=== PATIENT | female | born 1955 | race African-American/Black ===

== ENCOUNTER 2024-10-12 18:54 | Inpatient (IN) | payer MEDICARE, MEDICAID ==
[~2024-10-12] VITALS: Ht 157.5 cm; Wt 71.5 kg
[~2024-10-12 18:54] MED LIST: ATOR-47 PO; ATOR40TA52 PO; BUPR-60 PO; BUSP10TA90 PO; CALC-332 PO; CALC-450 PO; CARV-216 PO; CLOP75TA70 PO; FERR325T77 PO; FUROPOW8 PO; GABAPENTIN PO; GEMF-66 PO; INDO50CA82 PO; LORSARTAN PO; MAGN400T7 PO; METF-372 PO; METH-1181 PO; RANI150I PO; RANO10003 PO; SEMA4INJ SC; TAMS0.4C39 PO; [UNRECOGNIZED DRUG - CODE] PO
--- NOTE | 2024-10-12 19:03 | ED.PDOC ---
HPI Comments 69-year-old female who came to ER via EMS for chest pains. Patient notes an extensive cardiac history, including hypertension, diabetes, coronary artery disease, chronic kidney disease, COPD, mi, status post pacemaker and cardiac stents. States at about 8:00 a.m. today, she started having the sided chest pains, constant, pressure, tight, unprovoked, non radiating, associated with shortness of breath. Patient was given aspirin and NTG by paramedics. 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 Allergies: Coded Allergies: NO KNOWN ALLERGIES (Unverified , 12/28/12) Home Meds Reported Medications Methocarbamol (Methocarbamol) 500 Mg Tab, 500 MG PO 12/30/12 Calcium Carbonate-Cholecalcife (OYSTER SHELL CALCIUM + D3) 1 Tab Tab, 1 TAB PO 12/30/12 Indomethacin (Indomethacin) 50 Mg Cap, 50 MG PO 12/30/12 [Furosemide] (Furosemide) No Conflict Check, PO 12/30/12 Bupropion Hcl (Bupropion Hcl Sr) 150 Mg Tab, 150 MG PO 12/30/12 Buspirone Hcl (Buspirone Hcl) 10 Mg Tab, 10 MG PO 12/30/12 Aspirin (EC-81 ASPIRIN) 81 Mg Tab, 81 MG PO 12/30/12 Carvedilol (COREG) 12.5 Mg Tab, 12.5 MG PO 12/30/12 Clopidogrel Bisulfate (CLOPIDOGREL) 75 Mg Tab, 75 MG PO 12/30/12 Magnesium Oxide (MAGNESIUM OXIDE) 400 Mg Tab, 400 MG PO 12/30/12 Calcium Carbonate-Vitamin D (CALCIUM 500+D) 500 + Tab, 500 + PO 12/30/12 [Lorsartan] No Conflict Check, 25 MG PO 12/30/12 Atorvastatin Calcium (ATORVASTATIN CALCIUM) 80 Mg Tab, 80 MG PO 12/30/12 [Gabepenttin] No Conflict Check, 300 PO 12/30/12 Gemfibrozil (Gemfibrozil) 600 Mg Tab, 600 MG PO 12/30/12 Ranitidine Hcl (RANITIDINE HCL) 150 Mg/6 Ml Inj, 150 MG PO 12/30/12 Ferrous Gluconate (FERROUS GLUCONATE) 325 Mg Tab, 325 MG PO 12/30/12 Metformin Hydrochloride (Metformin Hcl) 1,000 Mg Tab, 1000 MG PO 12/30/12 Information Source: Patient, Emergency Med Personnel Mode of Arrival: EMS Severity: Moderate Timing: Hours Duration: Since onset Prehospital treatment: 12 Lead EKG, ASA, NTG, Oxygen Location: Chest (L) Radiation: No Radiation Quality: Pressure, Tightness Onset: With Light Exertion Cardiac Risk Factors: HTN, Diabetes PE Risk Factors: None History of: Similar pain in past, NH Associated Signs and Symptoms: SOB Past Medical History PAST MEDICAL HISTORY: CAD, CKF, COPD, DM, High Lipids, HTN, [place] Surgical History: BTL, , Hernia Repair, Pacemaker, PTCA SHOP SUPERINTENDENT History: No Pertinent SHOP SUPERINTENDENT History Family History Family History: No family hx of DM, No family hx of Heart estephania, No family hx of HTN Social History Smoker: Non-Smoker Alcohol: Denies ETOH Use Drugs: Denies Drug Use Lives In: Home Constitutional: denies: chills, diaphoresis, fatigue, fever, malaise, sweats, weakness, others EENTM: denies: blurred vision, double vision, ear bleeding, ear discharge, ear drainage, ear pain, ear ringing, eye pain, eye redness, hearing loss, mouth pain, mouth swelling, nasal discharge, nose bleeding, nose congestion, nose pain, photophobia, tearing, throat pain, throat swelling, voice changes, others Respiratory: reports: SOB at rest, shortness of breath; denies: cough, hemoptysis, orthopnea, SOB with excertion, stridor, wheezing, others Cardiovascular: reports: chest pain; denies: dizzy spells, diaphoresis, Dyspnea on exertion, edema, irregular heart beat, left arm pain, lightheadedness, palpitations, PND, syncope, others Gastrointestinal: denies: abdomen distended, abdominal pain, blood streaked bowels, constipated, diarrhea, dysphagia, difficulty swallowing, hematemesis, melena, nausea, poor appetite, poor fluid intake, rectal bleeding, rectal pain, vomiting, others Genitourinary: denies: abnormal vagina bleeding, burning, dyspareunia, dysuria, flank pain, frequency, hematuria, incontinence, pain, , vagina discharge, urgency, others Neurological: denies: dizziness, fainting, headache, left sided numbness, left sided weakness, numbness, paresthesia, pre-existing deficit, right sided numbness, right sided weakness, seizure, speech problems, tingling, tremors, weakness, others Musculoskeletal: denies: back pain, gout, joint pain, joint swelling, muscle pain, muscle stiffness, neck pain, others Integumetry: denies: bruises, change in color, change in hair/nails, dryness, laceration, lesions, lumps, rash, wounds, others Allergic/Immunocompromised: denies: Difficulty Healing, Frequent Infections, Hives, Itching, others Hematologic/Lymphatic: denies: anemia, blood clots, easy bleeding, easy bruising, swollen glands, others Endocrine: denies: excessive hunger, excessive sweating, excessive thirst, excessive urination, flushing, intolerance to cold, intolerance to heat, unexplained weight gain, unexplained weight loss, others Psychiatric: denies: anxiety, bipolar disorder, depression, hopeless, panic disorder, schizophrenia, sleepless, suicidal, others Physical Exam General Appearance: No Apparent Distress, Normal HEENT: Normal ENT Inspection, Pharynx Normal, TMs Normal Neck: Full Range of Motion, Non-Tender, Normal, Normal Inspection Respiratory: Chest Non-Tender, Lungs Clear, No Accessory Muscle Use, No Respiratory Distress, Normal Breath Sounds Cardiovascular: No Edema, No JVD, No Murmur, No Gallop, Normal Peripheral Pulses, Regular Rate/Rhythm Breast Exam: Deferred Gastrointestinal: No Organomegaly, Non Tender, No Pulsatile Mass, Normal Bowel Sounds, Soft Genitalia: Deferred Pelvic: Deferred Rectal: Deferred Extremities: No calf tenderness, Normal capillary refill, Normal inspection, Normal range of motion, Non-tender, No pedal edema Musculoskeletal : Apperance: Normal 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 Was a procedure done?: No CP Differential Dx Differential Diagnosis: Angina, Anxiety / Panic Attack, Electrolyte Disorder, Hyperventilation Differential Diagnosis: Angina, Chest Wall Pain, Costochondritis, Esophageal reflux/spasm, Gastritis, Myocardial Infarction X-Ray, Labs, Meds, VS Vital Signs Date Time Temp Pulse Resp B/P (MAP) Pulse Ox O2 Delivery O2 Flow Rate FiO2 6/13/25 19:59 94 20 157/72 10/12/24 19:58 157/72 10/12/24 19:35 98 Room Air* 0 21 10/12/24 19:30 90 16 99 Room Air* 0 21 10/12/24 19:14 98.7 90 16 157/72 (100) 99 98.7 10/12/24 19:00 97.8 98 18 142/95 (111) 97 97.8 10/12/24 18:59 98 Lab Test 10/12/24 19:19 Range/Units White Blood Count 4.9 4.4-10.8 10^3/uL Red Blood Count 4.72 4.0-5.20 10^6/uL Hemoglobin 13.6 12.2-16.2 g/dL Hematocrit 41.0 36.0-46.0 % Mean Corpuscular Volume 87.0 80.0-100.0 fL Mean Corpuscular Hemoglobin 28.9 28.0-32.0 pg Mean Corpuscular Hemoglobin Concent 33.2 32.0-36.0 g/dL Red Cell Distribution Width 13.7 11.8-14.3 % Platelet Count 161 140-450 10^3/uL Mean Platelet Volume 9.0 6.9-10.8 fL Neutrophils (%) (Auto) 58.1 37.0-80.0 % Lymphocytes (%) (Auto) 29.0 10.0-50.0 % Monocytes (%) (Auto) 8.9 0.0-12.0 % Eosinophils (%) (Auto) 2.8 0.0-7.0 % Basophils (%) (Auto) 1.2 0.0-2.0 % Neutrophils # (Auto) 2.8 1.6-8.6 10 ^3/uL Lymphocytes # (Auto) 1.4 0.4-5.4 10 ^3/uL Monocytes # (Auto) 0.4 0-1.3 10 ^3/uL Eosinophils # (Auto) 0.1 0-0.8 10 ^3/uL Basophils # (Auto) 0.1 0-0.2 10 ^3/uL Nucleated Red Blood Cells 0.1 % Prothrombin Time 11.2 9.3-11.8 sec Prothrombin Time INR 1.06 0.9-1.15 Activated Partial Thromboplast Time 27.7 24.5-34.5 SEC Sodium Level 140 136-145 mmol/L Potassium Level 4.1 3.5-5.1 mmol/L Chloride Level 106 98-107 mmol/L Carbon Dioxide Level 26 20-31 mmol/L Anion Gap 8 5-15 Blood Urea Nitrogen 15 9-23 mg/dL Creatinine 1.23 H 0.550-1.02 mg/dL Glomerular Filtration Rate Calc 48 >90 mL/min BUN/Creatinine Ratio 12.2 10.0-20.0 Serum Glucose 154 H 74-106 mg/dL Calcium Level 11.0 H 8.7-10.4 mg/dL Total Bilirubin 0.4 0.2-1.0 mg/dL Aspartate Amino Transferase (AST) 20 <34 U/L Alanine Aminotransferase (ALT) 21 7-40 U/L Alkaline Phosphatase 139 H 46-116 U/L Troponin I High Sensitivity 28 </=34 ng/L Total Protein 7.3 5.7-8.2 g/dL Albumin 4.6 3.2-4.8 g/dL Current Medications Medications (Trade) Dose Ordered Sig/Darline Route Start Time Stop Time Status Last Admin Morphine Sulfate 4 mg ONCE ONCE IV 10/12/24 19:00 10/12/24 19:01 DC 10/12/24 19:59 Aspirin 162 mg ONCE ONCE PO 10/12/24 19:00 10/12/24 19:01 DC 10/12/24 19:57 Ondansetron HCl (Zofran) 4 mg ONCE ONCE IV 10/12/24 19:00 10/12/24 19:01 DC 10/12/24 19:57 Nitroglycerin (Ntrostat Sublingual) 0.4 mg ONCE ONCE SL 10/12/24 19:00 10/12/24 19:01 DC 10/12/24 19:58 CHEST RADIOGRAPH Indication: chest pain Technique: Single frontal view of the chest was obtained Comparison: None FINDINGS: Lines and Tubes: None left-sided approach dual lead AICD terminating within right atrium and right ventricle. Lungs: No focal consolidation. Interstitial prominence. Indistinctness of the left hemidiaphragm. No pneumothorax. Cardiomediastinal contours: Unremarkable Bones: No acute osseous abnormality. IMPRESSION: Indistinctness of the left hemidiaphragm which may be overlying structures with trace effusion/atelectasis not excluded. Time of 1ST Reevaluation: 18:58 Reevaluation 1ST: Unchanged Patient Education/Counseling: Diagnosis, Treatment Family Education/Counseling: No Family Present Departure 1 Departure Time of Disposition: 20:15 Impression: Primary Impression: Acute coronary syndrome Additional Impression: Acute renal injury Disposition: 09 ADMITTED INPATIENT Admit to: [facility] Condition: Guarded Discharged With: Self Comments Left-Sided Chest Pain in 69-Year-Old Female with CAD Chief Complaint: Left-sided chest pain History of Present Illness: Patient is a 69-year-old female with significant cardiac history who presents to the ED with left parasternal chest pain. The pain is described as pressure-like and was partially relieved with nitroglycerin administration. The patient has a complex medical history including coronary artery disease with two cardiac stents placed approximately 15 years ago, COPD, hypertension, type 2 diabetes, and has a pacemaker. Given her cardiac risk factors and presentation, there is high concern for acute coronary syndrome. Review of Systems: Limited review of systems due to acute presentation. Cardiovascular: Positive for left-sided chest pain, pressure-like in nature. Respiratory: No information about shortness of breath, cough, or other res piratory symptoms noted. Constitutional: No information about fever, chills, or other constitutional symptoms noted. Remainder of systems deferred due to acute presentation. 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 Past Medical History: Coronary artery disease with cardiac stents placed approximately 15 years ago Chronic obstructive pulmonary disease (COPD) Hypertension Type 2 diabetes mellitus Status post pacemaker placement Past Surgical History: Cardiac stent placement approximately 15 years ago Pacemaker implantation (date not specified) Lab Results: CBC: Unremarkable Chemistry panel: - Creatinine: Elevated at 1.23 mg/dL - Glucose: Slightly elevated at 154 mg/dL Cardiac enzymes: - Initial troponin: Normal at 28 ng/L Imaging and Other Relevant Results: Chest X-ray: Possible small left lower lobe atelectasis versus small pleural effusion Medical Decision Making: Summary Statement: 69-year-old female with significant cardiac history presenting with left-sided chest pain that is pressure-like and partially responsive to nitroglycerin, concerning for acute coronary syndrome. Problem List: 1. Acute chest pain, likely acute coronary syndrome 2. Acute kidney injury with elevated creatinine 3. Coronary artery disease with prior stents 4. COPD 5. Hypertension 6. Type 2 diabetes mellitus 7. Status post pacemaker placement Differential Diagnosis: Acute coronary syndrome (unstable angina vs. NSTEMI), stable angina, COPD exacerbation, pulmonary embolism, aortic dissection, musculoskeletal chest pain, pericarditis, pneumonia, pleural effusion ED Course: Patient presented with left-sided chest pain. Given aspirin, nitroglycerin, and morphine with improvement in chest pain. Initial troponin was normal. Chest X-ray showed possible left lower lobe atelectasis versus small pleural effusion. Given elevated creatinine, patient received 500 mL IV fluid bolus. Decision made to admit for acute coronary syndrome workup and management of acute kidney injury. Assessment and Plan: 1. Acute Chest Pain/Suspected Acute Coronary Syndrome: - Admit to telemetry unit for further evaluation and management - Continue aspirin therapy - PRN nitroglycerin for chest pain - Serial cardiac enzymes - Cardiology consultation - Consider cardiac catheterization based on further evaluation 2. Acute Kidney Injury: - IV hydration with careful monitoring of fluid status given cardiac history - Monitor renal function with serial creatinine measurements - Avoid nephrotoxic medications - Consider nephrology consultation if no improvement 3. Chronic Medical Conditions (COPD, HTN, DM, CAD): - Continue home medications as appropriate - Monitor blood glucose levels - Optimize blood pressure control 4. Possible Left Lower Lobe Atelectasis/Small Pleural Effusion: - Monitor respiratory status - Consider repeat imaging if respiratory symptoms develop Patient has been informed of the assessment and plan. She understands the need f or admission and agrees with the treatment plan. She will be transferred to the telemetry unit for continued care. Additional Notes: Patient admitted for acute coronary syndrome and acute kidney injury Billing Information: ICD-10: I20.9 - Angina pectoris, unspecified ICD-10: N17.9 - Acute kidney failure, unspecified ICD-10: I25.10 - Atherosclerotic heart disease of campo coronary artery without angina pectoris ICD-10: J44.9 - Chronic obstructive pulmonary disease, unspecified ICD-10: I10 - Essential (primary) hypertension ICD-10: E11.9 - Type 2 diabetes mellitus without complications Critical Care Note Critical Care Time?: Yes (35 min-critical care time only) Critical care comment: Acute chest pains Total critical care time: Approximately 36 minutes Due to a high probability of clinically significant, life threatening deterior ation, the patient required my highest level of preparedness to intervene emergently and I personally spent this critical care time directly and personally managing the patient. This critical care time included obtaining a history; examining the patient; pulse oximetry; ordering and review of studies; arranging urgent treatment with development of a management plan; evaluation of patient's response to treatment; frequent reassessment; and, discussions with other providers. This critical care time was performed to assess and manage the high probability of imminent, life-threatening deterioration that could result in multi-organ failure. It was exclusive of separately billable procedures and treating other patients. Stability Stability form required: No Heart Score Heart Score: Heart Score Response (Comments) Value History Moderate Suspicious 1 EKG Repolarization Disturb 1 Age >65 2 Risk Factors >3 or Hx ASHD 2 Troponin Normal limit 0 Total 6 I personally scribed for KLARISSA VENEGAS MD ([email or web address]) on 10/12/24 at 19:03. Electronically submitted by Merritt Ferrer ([email or web address]). I personally scribed for KLARISSA VENEGAS MD ([email or web address]) on 10/12/24 at 20:04. Elena ctronically submitted by Merritt Ferrer ([email or web address]). KLARISSA VENEGAS MD Oct 12, 2024 19:03
[2024-10-12 19:30] VITALS: PULSE 90; RESP 16; O2SAT 99
[2024-10-12 19:35] LABS: Basophils # (auto) 0.1 10 ^3/uL (0-0.2); Basophils % (auto) 1.2 % (0.0-2.0); Eosinophils # (auto) 0.1 10 ^3/uL (0-0.8); Eosinophils % (auto) 2.8 % (0.0-7.0); Hemoglobin 13.6 g/dL (12.2-16.2); Lymphocytes # (auto) 1.4 10 ^3/uL (0.4-5.4); Mean Corpuscular Hemoglobin 28.9 pg (28.0-32.0); Mean Corpuscular Hgb Conc. 33.2 g/dL (32.0-36.0); Monocytes # (auto) 0.4 10 ^3/uL (0-1.3); Monocytes % (auto) 8.9 % (0.0-12.0); Neutrophils # (auto) 2.8 10 ^3/uL (1.6-8.6); Neutrophils % (auto) 58.1 % (37.0-80.0); Nucleated Red Blood Cells % 0.1 %; Platelet Count (auto) 161 10^3/uL (140-450); Red Blood Cells 4.72 10^6/uL (4.0-5.20); Red Cell Distribution Width 13.7 % (11.8-14.3); White Blood Cell 4.9 10^3/uL (4.4-10.8)
[2024-10-12 19:51] LABS: Alanine Aminotransferase 21 U/L (7-40); Albumin 4.6 g/dL (3.2-4.8); Anion Gap 8 (5-15); Aspartate Aminotransferase 20 U/L (<34); BUN/Creatinine Ratio 12.2 (10.0-20.0); Bilirubin, Total 0.4 mg/dL (0.2-1.0); Blood Urea Nitrogen 15 mg/dL (9-23); Carbon Dioxide 26 mmol/L (20-31); Chloride 106 mmol/L (98-107); Potassium 4.1 mmol/L (3.5-5.1); Sodium 140 mmol/L (136-145); Total Protein 7.3 g/dL (5.7-8.2)
[2024-10-12 19:54] LABS: Alkaline Phosphatase 139 U/L (46-116); Glucose 154 mg/dL (74-106)
[2024-10-12 19:55] LABS: INR 1.06 (0.9-1.15); Partial Thromboplastin Time 27.7 SEC (24.5-34.5); Prothrombin Time 11.2 sec (9.3-11.8)
[2024-10-12] MEDS: ONDANSETRON HCL 4 MG/2 ML VIAL IV ONE (19:57)
[2024-10-12] MEDS: ASPirin 81 mg TAB PO ONE (19:57)
[2024-10-12] MEDS: NITROGLYCERIN 0.4 MG SL TAB SL ONE (19:58)
--- NOTE | 2024-10-12 19:58 | DVH ---
CHEST RADIOGRAPH Indication: chest pain Technique: Single frontal view of the chest was obtained Comparison: None FINDINGS: Lines and Tubes: None left-sided approach dual lead AICD terminating within right atrium and right ve ntricle. Lungs: No focal consolidation. Interstitial prominence. Indistinctness of the left hemidiaphragm. No pneumothorax. Cardiomediastinal contours: Unremarkable Bones: No acute osseous abnormality. IMPRESSION: Indistinctness of the left hemidiaphragm which may be overlying structures with trace effusion/atelec tasis not excluded.
[2024-10-12] MEDS: MORPHINE SULFATE 4 MG/ML SYR/VIAL IV ONE (19:59)
--- NOTE | 2024-10-12 20:14 | ECG ---
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
[2024-10-12] MEDS ORDERED: hydrALAZINE HCL 20 MG/ML VL IV PRN (20:30)
[2024-10-12] MEDS ORDERED: ONDANSETRON HCL 4 MG/2 ML VIAL IV PRN (20:30)
[2024-10-12] MEDS ORDERED: DOCUSATE SOD 100 MG CAP PO PRN (20:30)
[2024-10-12] MEDS ORDERED: DEXTROSE (50%) 50ML SYRG IV PRN (20:30)
[2024-10-12] MEDS ORDERED: ACETAMINOPHEN 325 MG TAB PO PRN (20:30)
[2024-10-12] MEDS: SODIUM CHLORIDE 0.9% 1,000 ML IVB ONE (20:41)
[2024-10-12 21:20] VITALS: PULSE 90; RESP 13; O2SAT 98
--- NOTE | 2024-10-12 22:08 | DVHHP2 ---
History of Present Illness Reason for Visit: Acute coronary syndrome History of Present Illness The patient is a 69-year-old female with multiple past medical history including Coronary artery disease, diabetes mellitus, COPD, [place], and hypertension who presented to [facility] ED with complaint of chest pain. Patient reports she has been experiencing left-sided chest pain, constant in nature, pressure-like sensation, tightness, nonradiating, associated with shortness of breaths, getting worse that prompted this visit. Patient was seen and evaluated in the ED, laboratory data shows WBC 4.9, platelets 161, sodium 140, potassium 4.1, BUN 15, creatinine 1.23, glucose 154, calcium 11.0, troponin 28, blood pressure 157/72, heart rate 92, temperature 98.7 F, O2 saturation 99% on room air. Chest x-ray revealing indistinctness of the left hemidiaphragm which may be overlying structures with trace effusion/atelectasis not excluded. Patient was given aspirin 162 mg p.o. x1, please see medication orders section in the computer. On my assessment, patient denied chest pain at this moment, no headache, no dizziness, currently on oxygen, no diaphoresis, no nausea, no vomiting, no fever, no chills. Patient was admitted for further evaluation and medical management. Past Medical History CAD, CKF, COPD, DM, High Lipids, HTN, [place] Past Surgical History BTL, , Hernia Repair, Pacemaker, PTCA Family History Reviewed, noncontributory to the management of this case. Past Social History The patient lives at home, denies smoking, alcohol or illicit drugs abuse. Review of Systems Constitutional: No: Fever, Chills, Sweats, Weakness, Malaise, Other Eyes: No: Pain, Vision change, Conjunctivae inflammation, Eyelid inflammation, Other, Redness ENT: No: Ear pain, Ear discharge, Nose pain, Nose discharge, Nose congestion, Mouth pain, Mouth swelling, Throat pain, Throat swelling, Other Respiratory: Shortness of breath, Other (SOB at rest); No: Cough, Dry, SOB with excertion, Wheezing, Hemoptysis, Pleuritic Pain, Sputum, Wheezing Cardiovascular: Chest Pain; No: Palpitations, Orthopnea, Paroxysmal Noc. Dyspne a, Edema, Lt Headedness, Other Gastrointestinal: No: Nausea, Vomiting, Abdominal Pain, Diarrhea, Constipation, Melena, Hematochezia, Other Genitourinary: No Dysuria, No Frequency, No Incontinence, No Hematuria, No Retention, No Other Musculoskeletal: No: other, neck pain, shoulder pain, arm pain, back pain, hand pain, leg pain, foot pain Skin: No: Rash, Lesions, Jaundice, Bruising, Other Neurological: No: Weakness, Numbness, Incoordination, Change in speech, Confusion, Seizures, Other Allergies: Coded Allergies: NO KNOWN ALLERGIES (Unverified , 12/28/12) Medications Current Medications Medications Dose Ordered Sig/Darline Route Start Time Stop Time Status Last Admin Dose Admin Aspirin 81 mg DAILY PO 10/13/24 10:00 Atorvastatin Calcium 40 mg HS PO 10/12/24 22:00 Carvedilol 12.5 mg Q12HR PO 10/12/24 22:00 Hydralazine HCl 10 mg Q6HP PRN IV 10/12/24 20:30 Diagnostic Test (Pha) 1 strip ACHS 10/12/24 22:00 Insulin Human Regular ACHS SC 10/12/24 22:00 Dextrose 50 ml UD PRN IV 10/12/24 20:30 Sodium Chloride 10 ml Q8HR IV 10/12/24 22:00 Acetaminophen/ Hydrocodone Bitart 1 tab Q4HP PRN PO 10/12/24 20:30 Ondansetron HCl 4 mg Q4HP PRN IV 10/12/24 20:30 Docusate Sodium 100 mg BIDPRN PRN PO 10/12/24 20:30 Acetaminophen 650 mg Q6HP PRN PO 10/12/24 20:30 Exam Vital Signs Vital Signs Date Time Temp Pulse Resp B/P (MAP) Pulse Ox O2 Delivery O2 Flow Rate FiO2 10/12/24 20:53 133/73 10/12/24 20:29 96 16 10/12/24 20:00 99 10/12/24 19:35 Room Air* 0 21 10/12/24 19:14 98.7 98.7 General Appearance: Alert, Oriented X3, Cooperative, No acute distress HEENT: Atraumatic, PERRLA, EOMI, Mucous membr. moist/pink Respiratory: Normal air movement Cardiovascular: Regular rate, Normal S1, Normal S2, No murmurs Abdominal: Normal bowel sounds, Soft, No tenderness, No hepatospenomegaly, No masses Extremities: No clubbing, No cyanosis, No edema, Normal pulses, No tenderness/swelling Skin: No rashes, No breakdown, No significant lesion Neuro: Normal speech, Normal tone, Sensation intact, Cranial nerves 3-12 NL, Reflexes 2+, Other (Generalized weakness) Psych/Mental Status: Mental status NL, Mood NL Labs/Xrays Labs Test 10/12/24 20:27 10/12/24 19:19 Range/Units Troponin I High Sensitivity 33 </=34 ng/L White Blood Count 4.9 4.4-10.8 10^3/uL Red Blood Count 4.72 4.0-5.20 10^6/uL Hemoglobin 13.6 12.2-16.2 g/dL Hematocrit 41.0 36.0-46.0 % Mean Corpuscular Volume 87.0 80.0-100.0 fL Mean Corpuscular Hemoglobin 28.9 28.0-32.0 pg Mean Corpuscular Hemoglobin Concent 33.2 32.0-36.0 g/dL Red Cell Distribution Width 13.7 11.8-14.3 % Platelet Count 161 140-450 10^3/uL Mean Platelet Volume 9.0 6.9-10.8 fL Neutrophils (%) (Auto) 58.1 37.0-80.0 % Lymphocytes (%) (Auto) 29.0 10.0-50.0 % Monocytes (%) (Auto) 8.9 0.0-12.0 % Eosinophils (%) (Auto) 2.8 0.0-7.0 % Basophils (%) (Auto) 1.2 0.0-2.0 % Neutrophils # (Auto) 2.8 1.6-8.6 10 ^3/uL Lymphocytes # (Auto) 1.4 0.4-5.4 10 ^3/uL Monocytes # (Auto) 0.4 0-1.3 10 ^3/uL Eosinophils # (Auto) 0.1 0-0.8 10 ^3/uL Basophils # (Auto) 0.1 0-0.2 10 ^3/uL Nucleated Red Blood Cells 0.1 % Prothrombin Time 11.2 9.3-11.8 sec Prothrombin Time INR 1.06 0.9-1.15 Activated Partial Thromboplast Time 27.7 24.5-34.5 SEC Sodium Level 140 136-145 mmol/L Potassium Level 4.1 3.5-5.1 mmol/L Chloride Level 106 98-107 mmol/L Carbon Dioxide Level 26 20-31 mmol/L Anion Gap 8 5-15 Blood Urea Nitrogen 15 9-23 mg/dL Creatinine 1.23 H 0.550-1.02 mg/dL Glomerular Filtration Rate Calc 48 >90 mL/min BUN/Creatinine Ratio 12.2 10.0-20.0 Serum Glucose 154 H 74-106 mg/dL Calcium Level 11.0 H 8.7-10.4 mg/dL Total Bilirubin 0.4 0.2-1.0 mg/dL Aspartate Amino Transferase (AST) 20 <34 U/L Alanine Aminotransferase (ALT) 21 7-40 U/L Alkaline Phosphatase 139 H 46-116 U/L Total Protein 7.3 5.7-8.2 g/dL Albumin 4.6 3.2-4.8 g/dL PATIENT: ANUPAMA BARNES ACCT: [id number] UNIT: [id number] : 1955 LOC: ER ROOM / BED: / AGE / SEX: 69 / F ADM STATUS: REG ER SERVICE 408 ORDERING PHYSICIAN: KLARISSA VENEGAS MD PROCEDURE(s): CXRP - CHEST PORTABLE REASON: chest pain ORDER NUMBER(s): [id number], ACCESSION NUMBER(s): [id number] CHEST RADIOGRAPH Indication: chest pain Technique: Single frontal view of the chest was obtained Comparison: None FINDINGS: Lines and Tubes: None left-sided approach dual lead AICD terminating within right atrium and right ventricle. Lungs: No focal consolidation. Interstitial prominence. Indistinctness of the left hemidiaphragm. No pneumothorax. Cardiomediastinal contours: Unremarkable Bones: No acute osseous abnormality. IMPRESSION: Indistinctness of the left hemidiaphragm which may be overlying structures with trace effusion/atelectasis not excluded. Assessment/Plan Assessment/Plan Acute coronary syndrome Acute renal injury Generalized weakness Acute respiratory distress Plan 1. Admit to telemetry unit 2. Breathing treatment 3. Pain control management 4. Management of fluids and electrolytes 5. Consultation for hospitalist 6. Diagnostic tests chest x-ray 7. DVT prophylaxis-on aspirin 8. Repeat labs CBC, CMP in a.m. 9. Continue with current medical management 10. Treatment plan discussed with patient and RN. Patient verbalized understanding. Plan discussed with: Patient, Other (RN) My Orders Orders - BEBE BRANDT DNP Procedure Category Date Status Time Aspirin Tablet PHA 10/13/24 In Process 10:00 Atorvastatin (Lipitor) PHA 10/12/24 In Process 22:00 Carvedilol Tablet PHA 10/12/24 In Process (Coreg Tablet) 22:00 Hydralazine Injection PHA 10/12/24 In Process (Apresoline Inject 20:30 Consistent DIET 10/13/24 Transmitted Carb(Ccho)Diabetes Breakfast Glucose Blood PHA 10/12/24 In Process (Accu-Chek Comfort 22:00 Insulin R (Human) PHA 10/12/24 In Process (Insulin R) 22:00 Dextrose 50% Syringe PHA 10/12/24 In Process 20:30 Allergies YULIET 10/12/24 In Process 20:28 Code Status CODE 10/12/24 Transmitted 20:28 Sodium Chloride Lock PHA 10/12/24 In Process (Saline Lock Ns) 22:00 Oxygen Per Hour RT 10/12/24 Transmitted 20:28 Hydrocodone-Acet PHA 10/12/24 In Process 5/325mg Tab ([place] 20:30 Ondansetron Hcl PHA 10/12/24 In Process (Zofran) 20:30 Docusate Sodium PHA 10/12/24 In Process Capsule (Colace 20:30 Complete Blood Count LAB 10/13/24 Verified 04:00 Comprehensive LAB 10/13/24 Verified Metabolic Panel 04:00 Condition: Serious YULIET 10/12/24 In Process 20:28 Acetaminophen Tablet PHA 10/12/24 In Process (Tylenol Tablet) 20:30 Bedrest With Bathroom YULIET 10/12/24 In Process Privileg 20:28 Sequential YULIET 10/12/24 In Process Compression Device Admit ADMIT 10/12/24 Verified 22:07 Nitroglycerin PHA 10/12/24 Verified Sublingual (Ntrostat 22:15 Morphine Sulfate PHA 10/12/24 Verified Injection 22:15 Stat Ekg For Chest YULIET 10/12/24 Verified Pain 22:07 Notify Md Of Changes YULIET 10/12/24 Verified From Base 22:07 Engine Monitor For YULIET 10/12/24 Verified 24 Hours 22:07 Emergency Dysrhythmia YULIET 10/12/24 Verified Protocol 22:07 Rhythm Strips Once YULIET 10/12/24 Verified Every Shift 22:07 Oxygen By Nasal RT 10/12/24 Verified Cannula 22:07 Problem List: (1) Acute coronary syndrome (2) Acute renal injury (3) Generalized weakness (4) Acute respiratory distress Date of Service: Oct 12, 2024 Billing Provider: BEBE BRANDT DNP Common Visit Codes: [id number] INP/OBS CARE (HIGH) BEBE BRANDT DNP Oct 12, 2024 22:08
[2024-10-12] MEDS ORDERED: NITROGLYCERIN 0.4 MG SL TAB SL PRN (22:15)
[2024-10-12] MEDS: SODIUM CHLOR 0.9% PF (SALINE LOCK) 10ML VIAL/SYR IV SCH (22:22)
[2024-10-12] MEDS: ACCU-CHEK COMFORT CURVE STRIP VI SCH (22:42)
[2024-10-12] MEDS: InsuLIN REG 1unit/0.01ml Soln (100units/ml) SC SCH (22:42)
[2024-10-12] MEDS: ATORVASTATIN 20 MG TAB PO SCH (23:05)
[2024-10-12] MEDS: CARVEDILOL 12.5 MG TAB PO SCH (23:06)
[2024-10-12] MEDS: HYDROcodone-ACET 5/325MG TAB PO PRN (23:49)
[2024-10-13] VITALS (8 sets, daily range): BP systolic 100–157; BP diastolic 65–96; PULSE 65–89; RESP 15–18; TEMP 95–97.9; O2SAT 98–100
[2024-10-13] MEDS: ZOLPIDEM TARTRATE 5 MG TAB PO ONE (01:15)
[2024-10-13] MEDS ORDERED: EMPA1TAB3 PO (01:42)
[2024-10-13] MEDS ORDERED: CARV12.544 PO (01:42)
[2024-10-13] MEDS ORDERED: SACU1TAB PO (01:42)
[2024-10-13] MEDS ORDERED: FURO40TA4 PO (01:42)
[2024-10-13] MEDS: ASPirin 81 mg TAB PO ONE (02:27)
[2024-10-13 03:31] LABS: Alanine Aminotransferase 17 U/L (7-40); Albumin 3.9 g/dL (3.2-4.8); Anion Gap 10 (5-15); Aspartate Aminotransferase 19 U/L (<34); BUN/Creatinine Ratio 13.7 (10.0-20.0); Blood Urea Nitrogen 16 mg/dL (9-23); Calcium 9.4 mg/dL (8.7-10.4); Carbon Dioxide 21 mmol/L (20-31); Chloride 107 mmol/L (98-107); Potassium 4.2 mmol/L (3.5-5.1); Sodium 138 mmol/L (136-145); Total Protein 6.3 g/dL (5.7-8.2)
[2024-10-13 03:32] LABS: Alkaline Phosphatase 120 U/L (46-116); Bilirubin, Total 0.5 mg/dL (0.2-1.0); Glucose 135 mg/dL (74-106)
[2024-10-13 07:28] LABS: Urine Bacteria FEW /hpf (None Seen); Urine Blood Negative /uL (Negative); Urine Clarity Turbid (Clear); Urine Color Yellow (Yellow); Urine Protein, UAD 1+ (Negative); Urine Specific Gravity 1.018 (1.001-1.035); Urine Squamous Epithelial Cell FEW /hpf (<5); Urine Urobilinogen Normal (Negative); Urine WBC 15 /HPF (0-5); Urine pH 8.5 (5.0-9.0)
[2024-10-13 08:31] LABS: Basophils # (auto) 0.1 10 ^3/uL (0-0.2); Basophils % (auto) 1.2 % (0.0-2.0); Eosinophils # (auto) 0.2 10 ^3/uL (0-0.8); Eosinophils % (auto) 4.5 % (0.0-7.0); Hematocrit 39.8 % (36.0-46.0); Hemoglobin 13.1 g/dL (12.2-16.2); Lymphocytes # (auto) 1.4 10 ^3/uL (0.4-5.4); Lymphocytes % (auto) 28.4 % (10.0-50.0); Mean Corpuscular Hemoglobin 28.9 pg (28.0-32.0); Mean Corpuscular Volume 87.8 fL (80.0-100.0); Monocytes # (auto) 0.4 10 ^3/uL (0-1.3); Monocytes % (auto) 8.7 % (0.0-12.0); Neutrophils # (auto) 2.8 10 ^3/uL (1.6-8.6); Neutrophils % (auto) 57.2 % (37.0-80.0); Nucleated Red Blood Cells % 0.3 %; Platelet Count (auto) 139 10^3/uL (140-450); Red Blood Cells 4.53 10^6/uL (4.0-5.20); Red Cell Distribution Width 13.8 % (11.8-14.3); White Blood Cell 4.8 10^3/uL (4.4-10.8)
[2024-10-13] MEDS: ASPirin 81 mg TAB PO SCH (09:03)
[2024-10-14] VITALS (8 sets, daily range): BP systolic 126–143; BP diastolic 71–87; PULSE 64–95; RESP 16–18; TEMP 97.5–98.5; O2SAT 98–100
--- NOTE | 2024-10-14 08:19 | DVHPN2 ---
Reviewed: Care Plan, H&P, Labs, Medications, Previous Orders, Radiology Changes from previous H/P or p: No Changes Eyes: No Pain, No Vision change, No Conjunctivae inflammation, No Eyelid inflammation, No Other, No Redness ENT: No Ear pain, No Ear discharge, No Nose pain, No Nose discharge, No Nose congestion, No Mouth pain, No Mouth swelling, No Throat pain, No Throat swelling, No Other Cardiovascular: Chest Pain; No Palpitations, No Orthopnea, No Paroxysmal Noc. Dyspnea, No Edema, No Lt Headedness, No Other Respiratory: No Cough, No Dry; Shortness of breath; No SOB with excertion, No Wheezing, No Hemoptysis, No Pleuritic Pain, No Sputum; Other (SOB at rest) Gastrointestinal: No Nausea, No Vomiting, No Abdominal Pain, No Diarrhea, No Constipation, No Melena, No Hematochezia, No Other Genitourinary: No Dysuria, No Frequency, No Incontinence, No Hematuria, No Retention, No Other Musculoskeletal: No other, No neck pain, No shoulder pain, No arm pain, No back pain, No hand pain, No leg pain, No foot pain Skin: No Rash, No Lesions, No Jaundice, No Bruising, No Other Objective Vitals Vital Signs Date Time Temp Pulse Resp B/P (MAP) Pulse Ox O2 Delivery O2 Flow Rate FiO2 10/14/24 05:00 97.9 77 16 137/76 (96) 100 97.9 10/13/24 20:00 Room Air* 0 21 Intake/Output Intake and Output 10/14/24 07:00 Intake Total 1680 ml Balance 1680 ml Intake Oral 1680 ml # Voids 9 Medications Current Medications Medications Dose Ordered Sig/Darline Route Start Time Stop Time Status Last Admin Dose Admin Aspirin 81 mg DAILY PO 10/13/24 10:00 10/13/24 09:03 81 MG Atorvastatin Calcium 40 mg HS PO 10/12/24 22:00 10/13/24 21:42 40 MG Carvedilol 12.5 mg Q12HR PO 10/12/24 22:00 10/13/24 21:42 12.5 MG Hydralazine HCl 10 mg Q6HP PRN IV 10/12/24 20:30 Diagnostic Test (Pha) 1 strip ACHS 10/12/24 22:00 10/14/24 06:37 1 STRIP Insulin Human Regular ACHS SC 10/12/24 22:00 10/14/24 06:38 2 UNITS Dextrose 50 ml UD PRN IV 10/12/24 20:30 Sodium Chloride 10 ml Q8HR IV 10/12/24 22:00 10/14/24 06:37 10 ML Acetaminophen/ Hydrocodone Bitart 1 tab Q4HP PRN PO 10/12/24 20:30 10/13/24 23:09 1 TAB Ondansetron HCl 4 mg Q4HP PRN IV 10/12/24 20:30 Docusate Sodium 100 mg BIDPRN PRN PO 10/12/24 20:30 Acetaminophen 650 mg Q6HP PRN PO 10/12/24 20:30 Nitroglycerin 0.4 mg Q5MINP PRN SL 10/12/24 22:15 Morphine Sulfate 2 mg Q30M PRN IV 10/12/24 22:15 Laboratory Results Laboratory Tests 10/13/24 02:52 10/13/24 08:22 Urinalysis Test 10/13/24 07:05 Urine Color Yellow (Yellow) Urine Clarity Turbid (Clear) H Urine pH 8.5 (5.0-9.0) Urine Specific Jo[place] 1.018 (1.001-1.035) Urine Protein 1+ (Negative) H Urine Ketones Negative (Negative) Urine Blood Negative /uL (Negative) Urine Nitrite 2+ (Negative) H Urine Bilirubin Negative (Negative) Urine Urobilinogen Normal mg/dL (Negative) Urine Leukocyte Esterase 3+ /uL (Negative) Urine RBC 1 /hpf (0 - 4) Urine Microscopic WBC 15 /HPF (0-5) H Urine Squamous Epithelial Cells Few /hpf (<5) Urine Bacteria Few /hpf (None Seen) H Urine Glucose Normal mg/dL (Normal) Labs and/or images reviewed: Labs reviewed by me, Image(s) reviewed by me Assessment/Plan Assessment/Plan Late entry Acute coronary syndrome troponin borderline elevated, treatment per ACS protocol, 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 Hypertension : Losartan Hypertriglyceridemia Acute on chronic congestive heart failure: Lasix Entresto Jardiance Coreg Hypercholesterolemia: Lipitor Acute renal injury History of VT status post stents 2009 Chronic current smoker counseling she does not want a patch Generalized weakness Acute respiratory distress Ejection fraction 40 % 2012, echocardiogram ordered Time spent 70 minutes Advanced care planning time 20 minutes Patient is full code Plan discussed with: Patient Date of Service: Oct 13, 2024 Billing Provider: JOSE MANUEL DENT MD Common Visit Codes: [id number] CARE 30-74 MIN JOSE MANUEL DENT MD Oct 14, 2024 08:19
--- NOTE | 2024-10-14 08:21 | DVHPN2 ---
Reviewed: Care Plan, H&P, Labs, Medications, Previous Orders, Radiology Changes from previous H/P or p: No Changes Eyes: No Pain, No Vision change, No Conjunctivae inflammation, No Eyelid inflammation, No Other, No Redness ENT: No Ear pain, No Ear discharge, No Nose pain, No Nose discharge, No Nose congestion, No Mouth pain, No Mouth swelling, No Throat pain, No Throat swelling, No Other Cardiovascular: Chest Pain; No Palpitations, No Orthopnea, No Paroxysmal Noc. Dyspnea, No Edema, No Lt Headedness, No Other Respiratory: No Cough, No Dry; Shortness of breath; No SOB with excertion, No Wheezing, No Hemoptysis, No Pleuritic Pain, No Sputum; Other (SOB at rest) Gastrointestinal: No Nausea, No Vomiting, No Abdominal Pain, No Diarrhea, No Constipation, No Melena, No Hematochezia, No Other Genitourinary: No Dysuria, No Frequency, No Incontinence, No Hematuria, No Retention, No Other Musculoskeletal: No other, No neck pain, No shoulder pain, No arm pain, No back pain, No hand pain, No leg pain, No foot pain Skin: No Rash, No Lesions, No Jaundice, No Bruising, No Other Objective Vitals Vital Signs Date Time Temp Pulse Resp B/P (MAP) Pulse Ox O2 Delivery O2 Flow Rate FiO2 10/14/24 05:00 97.9 77 16 137/76 (96) 100 97.9 10/13/24 20:00 Room Air* 0 21 Intake/Output Intake and Output 10/14/24 07:00 Intake Total 1680 ml Balance 1680 ml Intake Oral 1680 ml # Voids 9 Medications Current Medications Medications Dose Ordered Sig/Darline Route Start Time Stop Time Status Last Admin Dose Admin Aspirin 81 mg DAILY PO 10/13/24 10:00 10/13/24 09:03 81 MG Atorvastatin Calcium 40 mg HS PO 10/12/24 22:00 10/13/24 21:42 40 MG Carvedilol 12.5 mg Q12HR PO 10/12/24 22:00 10/13/24 21:42 12.5 MG Hydralazine HCl 10 mg Q6HP PRN IV 10/12/24 20:30 Diagnostic Test (Pha) 1 strip ACHS 10/12/24 22:00 10/14/24 06:37 1 STRIP Insulin Human Regular ACHS SC 10/12/24 22:00 10/14/24 06:38 2 UNITS Dextrose 50 ml UD PRN IV 10/12/24 20:30 Sodium Chloride 10 ml Q8HR IV 10/12/24 22:00 10/14/24 06:37 10 ML Acetaminophen/ Hydrocodone Bitart 1 tab Q4HP PRN PO 10/12/24 20:30 10/13/24 23:09 1 TAB Ondansetron HCl 4 mg Q4HP PRN IV 10/12/24 20:30 Docusate Sodium 100 mg BIDPRN PRN PO 10/12/24 20:30 Acetaminophen 650 mg Q6HP PRN PO 10/12/24 20:30 Nitroglycerin 0.4 mg Q5MINP PRN SL 10/12/24 22:15 Morphine Sulfate 2 mg Q30M PRN IV 10/12/24 22:15 Laboratory Results Laboratory Tests 10/13/24 02:52 10/13/24 08:22 Urinalysis Test 10/13/24 07:05 Urine Color Yellow (Yellow) Urine Clarity Turbid (Clear) H Urine pH 8.5 (5.0-9.0) Urine Specific [place] 1.018 (1.001-1.035) Urine Protein 1+ (Negative) H Urine Ketones Negative (Negative) Urine Blood Negative /uL (Negative) Urine Nitrite 2+ (Negative) H Urine Bilirubin Negative (Negative) Urine Urobilinogen Normal mg/dL (Negative) Urine Leukocyte Esterase 3+ /uL (Negative) Urine RBC 1 /hpf (0 - 4) Urine Microscopic WBC 15 /HPF (0-5) H Urine Squamous Epithelial Cells Few /hpf (<5) Urine Bacteria Few /hpf (None Seen) H Urine Glucose Normal mg/dL (Normal) Labs and/or images reviewed: Labs reviewed by me, Image(s) reviewed by me Assessment/Plan Assessment/Plan Acute chest pain rule out coronary syndrome troponin borderline elevated, treatment per ACS protocol, 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 Hypertension : Losartan Hypertriglyceridemia: Lopid Acute on chronic congestive heart failure: Lasix Entresto Jardiance Coreg Hypercholesterolemia: Lipitor Acute renal injury History of [place] status post stents 2009 Chronic current smoker counseling she does not want a patch Generalized weakness Acute respiratory distress Ejection fraction 40 % 2012, new echocardiogram ordered Time spent 50 minutes Patient is full code LYNETTE Connell at bedside Plan discussed with: Patient Date of Service: Oct 14, 2024 Billing Provider: JOSE MANUEL DENT MD Common Visit Codes: [id number] INP/OBS CARE(HIGH) JOSE MANUEL DENT MD Oct 14, 2024 08:21
[2024-10-14] MEDS: SACUBITRIL-VALSARTAN 24mg/26mg TAB PO SCH (10:54)
[2024-10-14] MEDS: CLOPIDOGREL BISULFATE 75 MG TAB PO SCH (10:55)
[2024-10-14] MEDS: ALPRAZolam 0.5 MG TAB PO PRN (10:56)
[2024-10-14] MEDS: EMPAGLIFLOZIN 10 MG TAB PO SCH (10:56)
--- NOTE | 2024-10-14 11:15 | DVHINCON2 ---
Date Seen: Oct 14, 2024 Referring Physician Warner Reason for Consultation Chest Pain History of Present Illness 69-year-old female with PMH for CAD, previous DC, stents x2, HTN, COPD, smoker, cardiomyopathy, presence of dual-chamber ICD presents to the hospital with chest pain. Patient states that symptoms have been intermittent for a couple of months though recently has been more intense and constant. Chest pain noted to be left-sided, pressure in nature, radiating across lower left and right side of thoracic area, associated with shortness of breath. Patient also knows increased shortness of breath with exertion and feeling of generalized weakness. Troponins trending 28, 33, 40, 39, 32. Creatinine 1.23 trending down to 1.17. CXR negative for acute pathology. Patient endorses was following up at [facility] in [place] though has not seen follow up or had cardiac workup in the last 3 years. EKG reviewed and shows sinus rhythm at 98 beats per minute, nonspecific ST abnormality. Past Medical History HTN Cardiomyopathy DC CAD S/P Stent Diabetes Tobacco use COPD Past Surgical History Coronary angiogram, PCI Dual Chamber AICD implantation 2012, Gen Change Family History: Cardiovascular disease Diabetes mellitus Social History Denies alcohol or illicit drug use. Patient continues to smoke cigarettes approximately half a pack a day. Allergies: Coded Allergies: NO KNOWN ALLERGIES (Unverified , 12/28/12) Home Meds Active Scripts Alprazolam (Xanax) 1 Mg Tab, 1 TAB PO TID PRN, #30 TAB Prov:JOSE MANUEL DENT MD 10/16/24 Hydrocodone-Acetaminophen (Hydrocodone Bitartrate/AC 5-325 mg) 1 Tab Tab, 1 TAB PO QID PRN, #30 TAB Prov:JOSE MANUEL DENT MD 10/16/24 Reported Medications Atorvastatin Calcium (ATORVASTATIN CALCIUM) 40 Mg Tab, 1 TAB PO DAILY for 90 Days, #90 10/16/24 Tamsulosin Hcl (Tamsulosin Hcl) 0.4 Mg Cap, 1 CAP PO DAILY for 90 Days, #90 10/16/24 Semaglutide (Ozempic) 4 Mg/3 Ml Inj, 1 MG SC QWEEKLY for 28 Days, #3 10/16/24 Ranolazine (Ranolazine ER) 1,000 Mg Tab, 1 TAB PO BID for 30 Days, #60 10/16/24 Carvedilol (Carvedilol) 12.5 Mg Tab, 1 TAB PO BID 10/13/24 Sacubitril-Valsartan (Entresto 24-26 mg) 1 Tab Tab, 1 TAB PO BID 10/13/24 Empagliflozin (Jardiance) 25 Mg Tab, 1 TAB PO DAILY 10/13/24 Furosemide (Furosemide) 40 Mg Tab, 1 TAB PO DAILY 10/13/24 Methocarbamol (Methocarbamol) 500 Mg Tab, 500 MG PO 12/30/12 Calcium Carbonate-Cholecalcife (OYSTER SHELL CALCIUM + D3) 1 Tab Tab, 1 TAB PO 12/30/12 Indomethacin (Indomethacin) 50 Mg Cap, 50 MG PO 12/30/12 Bupropion Hcl (Bupropion Hcl Sr) 150 Mg Tab, 150 MG PO 12/30/12 Buspirone Hcl (Buspirone Hcl) 10 Mg Tab, 10 MG PO 12/30/12 Aspirin (EC-81 ASPIRIN) 81 Mg Tab, 81 MG PO 12/30/12 Clopidogrel Bisulfate (CLOPIDOGREL) 75 Mg Tab, 75 MG PO 12/30/12 Magnesium Oxide (MAGNESIUM OXIDE) 400 Mg Tab, 400 MG PO 12/30/12 Calcium Carbonate-Vitamin D (CALCIUM 500+D) 500 + Tab, 500 + PO 12/30/12 Gemfibrozil (Gemfibrozil) 600 Mg Tab, 600 MG PO 12/30/12 Ranitidine Hcl (RANITIDINE HCL) 150 Mg/6 Ml Inj, 150 MG PO 12/30/12 Ferrous Gluconate (FERROUS GLUCONATE) 325 Mg Tab, 325 MG PO 12/30/12 Metformin Hydrochloride (Metformin Hcl) 1,000 Mg Tab, 1000 MG PO 12/30/12 Current Medications Current Medications Medications (Trade) Dose Ordered Sig/Darline Route PRN Reason Start Time Stop Time Status Last Admin Alprazolam (Xanax Tablet) 1 mg Q8HPRN PRN PO ANXIETY 10/14/24 08:30 10/14/24 10:56 Clopidogrel Bisulfate (Plavix) 75 mg DAILY PO 10/14/24 10:00 10/14/24 10:55 Empaglifozin (Jardiance) 25 mg DAILY PO 10/14/24 10:00 10/14/24 10:56 Sacubitril/ Valsartan (Entresto 24-26 Mg tab) 1 tab BID PO 10/14/24 10:00 10/14/24 10:54 Review of Systems Constitutional: No: Fever, Chills, Sweats, Weakness, Malaise, Other Eyes: No: Pain, Vision change, Conjunctivae inflammation, Eyelid inflammation, Other, Redness ENT: No: Ear pain, Ear discharge, Nose pain, Nose discharge, Nose congestion, Mouth pain, Mouth swelling, Throat pain, Throat swelling, Other Respiratory: No: Cough, Dry, , SOB with exertion, Wheezing, Hemoptysis, Pleuritic Pain, Sputum, Wheezing, Other positive: Shortness of breath Cardiovascular: ; No: Palpitations, Orthopnea, Paroxysmal Noc. , Edema, Lt H eadedness, Other positive: intermittent Chest Pain, Dyspnea Gastrointestinal: No: Nausea, Vomiting, Abdominal Pain, Diarrhea, Constipation, Melena, Hematochezia, Other Genitourinary: No Dysuria, No Frequency, No Incontinence, No Hematuria, No Retention, No Other Musculoskeletal: neck pain; No: other, shoulder pain, arm pain, back pain, hand pain, leg pain, foot pain Skin: No: Rash, Lesions, Jaundice, Bruising, Other Neurological: Other (Dizziness, headache.); No: Weakness, Numbness, Incoordination, Change in speech, Confusion, Seizures Vital Signs Vital Signs Date Time Temp Pulse Resp B/P (MAP) Pulse Ox O2 Delivery O2 Flow Rate FiO2 10/14/24 10:56 78 142/85 10/14/24 09:00 98.5 16 100 98.5 10/13/24 20:00 Room Air* 0 21 Physical Exam General appearance: Patient is well-developed, well-nourished, in no acute distress. HEENT: Exam shows: Normocephalic, atraumatic, PERRLA, EOMI Neck: Supple, no bruits Chest: Equal chest excursion bilaterally. Breath sounds normal-no rales or wheezes. Heart: Rhythm: Regular rate; no murmur or gallop Abdomen: Exam shows: Soft, nontender, nondistended Musculoskeletal: No clubbing, no cyanosis, no lower extremity edema Dermatology: Skin warm, moist. Neurological: Exam shows: Alert and oriented x4, normal speech Available prior records, labs, EKG, rhythm strips reviewed and interpreted Labs/Diagnostic Data Labs Test 10/14/24 06:13 10/13/24 08:22 10/13/24 07:05 10/13/24 02:52 Range/Units POC Glucose 134 H 70-106 mg/dl White Blood Count 4.8 4.4-10.8 10^3/uL Red Blood Count 4.53 4.0-5.20 10^6/uL Hemoglobin 13.1 12.2-16.2 g/dL Hematocrit 39.8 36.0-46.0 % Mean Corpuscular Volume 87.8 80.0-100.0 fL Mean Corpuscular Hemoglobin 28.9 28.0-32.0 pg Mean Corpuscular Hemoglobin Concent 33.0 32.0-36.0 g/dL Red Cell Distribution Width 13.8 11.8-14.3 % Platelet Count 139 L 140-450 10^3/uL Mean Platelet Volume 8.8 6.9-10.8 fL Neutrophils (%) (Auto) 57.2 37.0-80.0 % Lymphocytes (%) (Auto) 28.4 10.0-50.0 % Monocytes (%) (Auto) 8.7 0.0-12.0 % Eosinophils (%) (Auto) 4.5 0.0-7.0 % Basophils (%) (Auto) 1.2 0.0-2.0 % Neutrophils # (Auto) 2.8 1.6-8.6 10 ^3/uL Lymphocytes # (Auto) 1.4 0.4-5.4 10 ^3/uL Monocytes # (Auto) 0.4 0-1.3 10 ^3/uL Eosinophils # (Auto) 0.2 0-0.8 10 ^3/uL Basophils # (Auto) 0.1 0-0.2 10 ^3/uL Nucleated Red Blood Cells 0.3 % Troponin I High Sensitivity 32 </=34 ng/L Urine Color Yellow Yellow Urine Clarity Turbid H Clear Urine pH 8.5 5.0-9.0 Urine Specific [place] 1.018 1.001-1.035 Urine Protein 1+ H Negative Urine Ketones Negative Negative Urine Blood Negative Negative /uL Urine Nitrite 2+ H Negative Urine Bilirubin Negative Negative Urine Urobilinogen Normal Negative mg/dL Urine Leukocyte Esterase 3+ Negative /uL Urine RBC 1 0 - 4 /hpf Urine Microscopic WBC 15 H 0-5 /HPF Urine Squamous Epithelial Cells Few <5 /hpf Urine Bacteria Few H None Seen /hpf Urine Glucose Normal Normal mg/dL Sodium Level 138 136-145 mmol/L Potassium Level 4.2 3.5-5.1 mmol/L Chloride Level 107 98-107 mmol/L Carbon Dioxide Level 21 20-31 mmol/L Anion Gap 10 5-15 Blood Urea Nitrogen 16 9-23 mg/dL Creatinine 1.17 H 0.550-1.02 mg/dL Glomerular Filtration Rate Calc 51 >90 mL/min BUN/Creatinine Ratio 13.7 10.0-20.0 Serum Glucose 135 H 74-106 mg/dL Calcium Level 9.4 8.7-10.4 mg/dL Total Bilirubin 0.5 0.2-1.0 mg/dL Aspartate Amino Transferase (AST) 19 <34 U/L Alanine Aminotransferase (ALT) 17 7-40 U/L Alkaline Phosphatase 120 H 46-116 U/L Total Protein 6.3 5.7-8.2 g/dL Albumin 3.9 3.2-4.8 g/dL Test 10/12/24 19:19 Range/Units Prothrombin Time 11.2 9.3-11.8 sec Prothrombin Time INR 1.06 0.9-1.15 Activated Partial Thromboplast Time 27.7 24.5-34.5 SEC Assessment * Chest Pain, Mild Troponins - troponins trending normal. EKG negative for significant ST abnormality. Follow up echo. Continue aspirin and statin. Patient will need ischemic workup with stress test, plan for tomorrow. NPO after midnight. Plan of care discussed with patient, agrees to proceed. * Hx Ischemic Cardiomyopathy -previously EF 40%. Follow up echo. Continue GDMT. Patient on Entresto p.o. twice daily, Jardiance, Coreg 12.5 mg p.o. twice daily. * HTN -stable, continue trending on current regimen. * HLD - statin * ELIZABET - avoid nephrotoxic agents, continue monitoring. * Tobacco use - endorses has tried to quit mutiplle times. Continue reenforcement for cessation. Case Discussed with Dr Lundy. Continue with plan as stated above. Follow up echo. Plan for stress test in a.m. Critical care, time spent: 48 minutes This medical document was created using an electronic medical record system with voice recognition software and computerized dictation system. Although this document has been carefully reviewed, there might still be some phonetic and typographical errors. Occasional wrong-word or ``sound-alike substitutions may have occurred due to the inherent limitations of voice recognition software. These areas are purely typographical due to imperfections of the software programs and do not reflect any compromise in the patient's medical care. Please read the chart carefully and recognize, using context, where these substitutions have occurred. Thank you for allowing me to participate in the management of this patient. The treatment plan was discussed with and agreed upon by patient/family including requesting consultants and ordering of imaging/procedures. Plan discussed with: Patient NYHA Physical activity limitations: Class3(Marked) ordinary Date of Service: Oct 14, 2024 Billing Provider: ELSIE PAYNE Cardiology Common Codes: [id number] INP/OBS CARE (High), [id number] CARE 30-74 MIN ELSIE PAYNE Oct 14, 2024 11:15
[2024-10-14] MEDS: NITROGLYCERIN 0.4 MG SL TAB SL ONE (22:35)
[2024-10-15] VITALS (8 sets, daily range): BP systolic 119–152; BP diastolic 75–96; PULSE 71–93; RESP 15–20; TEMP 97.7–99.7; O2SAT 98–100
[2024-10-15] MEDS ORDERED: REGADENOSON 0.4 MG/5 ML SYRG IV ONE (09:00)
[2024-10-15] MEDS: REGADENOSON 0.4 MG/5 ML SYRG IV ONE ×2 (09:10)
--- NOTE | 2024-10-15 09:13 | DVHPN2 ---
Reviewed: Care Plan, H&P, Labs, Medications, Previous Orders, Radiology Changes from previous H/P or p: No Changes Eyes: No Pain, No Vision change, No Conjunctivae inflammation, No Eyelid inflammation, No Other, No Redness ENT: No Ear pain, No Ear discharge, No Nose pain, No Nose discharge, No Nose congestion, No Mouth pain, No Mouth swelling, No Throat pain, No Throat swelling, No Other Cardiovascular: Chest Pain; No Palpitations, No Orthopnea, No Paroxysmal Noc. Dyspnea, No Edema, No Lt Headedness, No Other Respiratory: No Cough, No Dry; Shortness of breath; No SOB with excertion, No Wheezing, No Hemoptysis, No Pleuritic Pain, No Sputum; Other (SOB at rest) Gastrointestinal: No Nausea, No Vomiting, No Abdominal Pain, No Diarrhea, No Constipation, No Melena, No Hematochezia, No Other Genitourinary: No Dysuria, No Frequency, No Incontinence, No Hematuria, No Retention, No Other Musculoskeletal: No other, No neck pain, No shoulder pain, No arm pain, No back pain, No hand pain, No leg pain, No foot pain Skin: No Rash, No Lesions, No Jaundice, No Bruising, No Other Objective Vitals Vital Signs Date Time Temp Pulse Resp B/P (MAP) Pulse Ox O2 Delivery O2 Flow Rate FiO2 10/15/24 08:45 97.7 71 18 119/81 (94) 99 97.7 10/14/24 20:00 Room Air* 0 21 Intake/Output Intake and Output 10/15/24 07:00 Intake Total 1500 ml Balance 1500 ml Intake Oral 1500 ml # Voids 8 Medications Current Medications Medications Dose Ordered Sig/Darline Route Start Time Stop Time Status Last Admin Dose Admin Aspirin 81 mg DAILY PO 10/13/24 10:00 10/14/24 10:57 81 MG Atorvastatin Calcium 40 mg HS PO 10/12/24 22:00 10/14/24 22:54 40 MG Carvedilol 12.5 mg Q12HR PO 10/12/24 22:00 10/14/24 10:56 12.5 MG Hydralazine HCl 10 mg Q6HP PRN IV 10/12/24 20:30 Diagnostic Test (Pha) 1 strip ACHS 10/12/24 22:00 10/15/24 06:11 1 STRIP Insulin Human Regular ACHS SC 10/12/24 22:00 10/14/24 13:54 2 UNITS Dextrose 50 ml UD PRN IV 10/12/24 20:30 Sodium Chloride 10 ml Q8HR IV 10/12/24 22:00 10/15/24 05:30 10 ML Acetaminophen/ Hydrocodone Bitart 1 tab Q4HP PRN PO 10/12/24 20:30 10/15/24 05:30 1 TAB Ondansetron HCl 4 mg Q4HP PRN IV 10/12/24 20:30 Docusate Sodium 100 mg BIDPRN PRN PO 10/12/24 20:30 Acetaminophen 650 mg Q6HP PRN PO 10/12/24 20:30 Nitroglycerin 0.4 mg Q5MINP PRN SL 10/12/24 22:15 Morphine Sulfate 2 mg Q30M PRN IV 10/12/24 22:15 Alprazolam 1 mg Q8HPRN PRN PO 10/14/24 08:30 10/14/24 23:01 1 MG Clopidogrel Bisulfate 75 mg DAILY PO 10/14/24 10:00 10/14/24 10:55 75 MG Empaglifozin 25 mg DAILY PO 10/14/24 10:00 10/14/24 10:56 25 MG Sacubitril/ Valsartan 1 tab BID PO 10/14/24 10:00 10/14/24 10:54 1 TAB Laboratory Results Laboratory Tests 10/13/24 02:52 10/13/24 08:22 Cardiac Markers Test 10/14/24 11:30 B-Type Natriuretic Peptide 246.90 pg/mL (0-100) Urinalysis Test 10/13/24 07:05 Urine Color Yellow (Yellow) Urine Clarity Turbid (Clear) H Urine pH 8.5 (5.0-9.0) Urine Specific [place] 1.018 (1.001-1.035) Urine Protein 1+ (Negative) H Urine Ketones Negative (Negative) Urine Blood Negative /uL (Negative) Urine Nitrite 2+ (Negative) H Urine Bilirubin Negative (Negative) Urine Urobilinogen Normal mg/dL (Negative) Urine Leukocyte Esterase 3+ /uL (Negative) Urine RBC 1 /hpf (0 - 4) Urine Microscopic WBC 15 /HPF (0-5) H Urine Squamous Epithelial Cells Few /hpf (<5) Urine Bacteria Few /hpf (None Seen) H Urine Glucose Normal mg/dL (Normal) Labs and/or images reviewed: Labs reviewed by me, Image(s) reviewed by me Assessment/Plan Assessment/Plan Acute chest pain rule out coronary syndrome troponin borderline elevated, treatment per ACS protocol, 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 Lundy, patient getting Cardiolite stress test Hypertension : Losartan Hypertriglyceridemia: Lopid Acute on chronic congestive heart failure: Lasix Entresto Jardiance Coreg Hypercholesterolemia: Lipitor Acute renal injury History of [place] status post stents 2009 Chronic current smoker counseling she does not want a patch Generalized weakness Acute respiratory distress Ejection fraction 40 % 2013, new echocardiogram ordered Time spent 50 minutes Patient is full code LYNETTE Connell at bedside Plan discussed with: Patient My Orders Orders - JOSE MANUEL DENT MD Procedure Category Date Status Time Clopidogrel Bisulfate PHA 10/14/24 In Process (Plavix) 10:00 Empagliflozin PHA 10/14/24 In Process (Jardiance) 10:00 Sacubitril-Valsartan PHA 10/14/24 In Process (Entresto 24-26 Mg 10:00 Date of Service: Oct 15, 2024 Billing Provider: JOSE MANUEL DENT MD Common Visit Codes: [id number] INP/OBS CARE(HIGH) Secondary Visit Codes: [id number] CHNG SMOKING >10MIN JOSE MANUEL DENT MD Oct 15, 2024 09:13
[2024-10-15] MEDS: MORPHINE SULFATE INJ 2 MG/ml SYRG IV PRN (11:23)
--- NOTE | 2024-10-15 11:49 | DVHSR ---
APPROVED REPORT Exam: Nuclear Stress Test BMI: 0 Stress Test Details HR Max Heart Rate (APMHR): 152.247472 bpm Target HR (85% APMHR): 129.973979 bpm BP ECG Stress ECG Conclusion completely infarcted lateral and anterolateral wall in circumflex distribution lvef 22% dilated LV severe systolic HF no relevant ischemia noted NM EXAM: Myocardial Perfusion REST/STRESS Imaging Protocol: Rest Tc-99m/Stress Tc-99m 1 day Resting Data Rest SPECT myocardial perfusion imaging was performed in supine position 60 minutes following the int ravenous injection of 8.0 mCi of Tc-99m Sestamibi. Time of rest injection: 07:42 Date: 10/15/2024 Time of rest imagin:42 Date: 10/15/2024 Administration Route: IV Administration Site: Right Arm Pharmacologic Stress Pharmacologic stress test was performed by injecting Regadenoson 0.4 mg IV push followed by the intra venous injection of 33.2 mCi of Tc-99m Sestamibi. Time of stress injection: 09:10 Date: 10/15/2024 Time of stress imagin:10 Date: 10/15/2024 Administration Route: IV Administration Site: Right Arm Gated Stress SPECT was performed 60 minutes after stress injection. The images were gated to evaluate regional wall motion and calculate left ventricular ejection fracti on. Stress only was performed in the Supine position. Nuclear Conclusion Nuclear Findings: negative for ischemia completely infarcted lateral and anterolateral wall in circumflex distribution lvef 22% dilated LV severe systolic HF no relevant ischemia noted
--- NOTE | 2024-10-15 12:26 | ECG ---
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
[2024-10-15 16:13] LABS: Opiate Scree,Urine Pos (NEGATIVE)
[2024-10-15 16:23] LABS: Amphetamine Screen, Urine Neg (NEGATIVE); Barbiturate Scree,Urine Neg (NEGATIVE); Benzodiazephine Screen, Urine Pos (NEGATIVE); Cannabinoid Screen, Urine Neg (NEGATIVE); Cocaine Screen, Urine Neg (NEGATIVE); Phencyclidine Screen, Urine Neg (NEGATIVE)
[2024-10-16] VITALS (7 sets, daily range): BP systolic 96–121; BP diastolic 54–79; PULSE 67–85; RESP 18–20; TEMP 97–98; O2SAT 95–100
--- NOTE | 2024-10-16 08:29 | DVHPN2 ---
Reviewed: Care Plan, H&P, Labs, Medications, Previous Orders, Radiology Changes from previous H/P or p: No Changes Eyes: No Pain, No Vision change, No Conjunctivae inflammation, No Eyelid inflammation, No Other, No Redness ENT: No Ear pain, No Ear discharge, No Nose pain, No Nose discharge, No Nose congestion, No Mouth pain, No Mouth swelling, No Throat pain, No Throat swelling, No Other Cardiovascular: Chest Pain; No Palpitations, No Orthopnea, No Paroxysmal Noc. Dyspnea, No Edema, No Lt Headedness, No Other Respiratory: No Cough, No Dry; Shortness of breath; No SOB with excertion, No Wheezing, No Hemoptysis, No Pleuritic Pain, No Sputum; Other (SOB at rest) Gastrointestinal: No Nausea, No Vomiting, No Abdominal Pain, No Diarrhea, No Constipation, No Melena, No Hematochezia, No Other Genitourinary: No Dysuria, No Frequency, No Incontinence, No Hematuria, No Retention, No Other Musculoskeletal: No other, No neck pain, No shoulder pain, No arm pain, No back pain, No hand pain, No leg pain, No foot pain Skin: No Rash, No Lesions, No Jaundice, No Bruising, No Other Objective Vitals Vital Signs Date Time Temp Pulse Resp B/P (MAP) Pulse Ox O2 Delivery O2 Flow Rate FiO2 10/16/24 05:00 98.0 84 20 121/79 (93) 99 98.0 10/15/24 20:00 Room Air* 0 21 Intake/Output Intake and Output 10/16/24 07:00 Intake Total 1550 ml Balance 1550 ml Intake Oral 1550 ml # Voids 5 Medications Current Medications Medications Dose Ordered Sig/Darline Route Start Time Stop Time Status Last Admin Dose Admin Aspirin 81 mg DAILY PO 10/13/24 10:00 10/15/24 11:11 81 MG Atorvastatin Calcium 40 mg HS PO 10/12/24 22:00 10/15/24 22:19 40 MG Carvedilol 12.5 mg Q12HR PO 10/12/24 22:00 10/15/24 22:19 12.5 MG Hydralazine HCl 10 mg Q6HP PRN IV 10/12/24 20:30 Diagnostic Test (Pha) 1 strip ACHS 10/12/24 22:00 10/16/24 06:31 1 STRIP Insulin Human Regular ACHS SC 10/12/24 22:00 10/16/24 06:35 2 UNITS Dextrose 50 ml UD PRN IV 10/12/24 20:30 Sodium Chloride 10 ml Q8HR IV 10/12/24 22:00 10/16/24 05:41 10 ML Acetaminophen/ Hydrocodone Bitart 1 tab Q4HP PRN PO 10/12/24 20:30 10/15/24 05:30 1 TAB Ondansetron HCl 4 mg Q4HP PRN IV 10/12/24 20:30 Docusate Sodium 100 mg BIDPRN PRN PO 10/12/24 20:30 Acetaminophen 650 mg Q6HP PRN PO 10/12/24 20:30 Nitroglycerin 0.4 mg Q5MINP PRN SL 10/12/24 22:15 Morphine Sulfate 2 mg Q30M PRN IV 10/12/24 22:15 10/15/24 22:20 2 MG Alprazolam 1 mg Q8HPRN PRN PO 10/14/24 08:30 10/16/24 00:32 1 MG Clopidogrel Bisulfate 75 mg DAILY PO 10/14/24 10:00 10/15/24 11:14 75 MG Empaglifozin 25 mg DAILY PO 10/14/24 10:00 10/15/24 11:11 25 MG Sacubitril/ Valsartan 1 tab BID PO 10/14/24 10:00 10/15/24 22:18 1 TAB Laboratory Results Laboratory Tests 10/13/24 02:52 10/13/24 08:22 Urinalysis Test 10/13/24 07:05 Urine Color Yellow (Yellow) Urine Clarity Turbid (Clear) H Urine pH 8.5 (5.0-9.0) Urine Specific [place] 1.018 (1.001-1.035) Urine Protein 1+ (Negative) H Urine Ketones Negative (Negative) Urine Blood Negative /uL (Negative) Urine Nitrite 2+ (Negative) H Urine Bilirubin Negative (Negative) Urine Urobilinogen Normal mg/dL (Negative) Urine Leukocyte Esterase 3+ /uL (Negative) Urine RBC 1 /hpf (0 - 4) Urine Microscopic WBC 15 /HPF (0-5) H Urine Squamous Epithelial Cells Few /hpf (<5) Urine Bacteria Few /hpf (None Seen) H Urine Glucose Normal mg/dL (Normal) Labs and/or images reviewed: Labs reviewed by me, Image(s) reviewed by me Assessment/Plan Assessment/Plan Acute chest pain rule out coronary syndrome troponin borderline elevated, treatment per ACS protocol, consult for stoner out lamination inspector Dr. Lundy, Cardiolite stress test shows: Negative for ischemia completely infarcted lateral and anterolateral wall in circumflex distribution lvef 22% dilated LV severe systolic HF Hypertension : Losartan Hypertriglyceridemia: Lopid Acute on chronic congestive heart failure: Lasix Entresto Jardiance Coreg Hypercholesterolemia: Lipitor Acute renal injury History of [place] status post stents 2008 Chronic current smoker counseling she does not want a patch Generalized weakness Acute respiratory distress Ejection fraction 40 % 2012, echo 22 % ejection fraction Time spent 50 minutes Patient is full code LYNETTE Perez at bedside Plan discussed with: Patient My Orders Orders - JOSE MANUEL DENT MD Procedure Category Date Status Time Urine Bacterial CATERINA 10/14/24 In Process Culture 08:20 Cardiac DIET 10/15/24 Transmitted Diet-2gna,Lofat,Lochol Dinner Date of Service: Oct 16, 2024 Billing Provider: JOSE MANUEL DENT MD Common Visit Codes: [id number] INP/OBS CARE(HIGH) JOSE MANUEL DENT MD Oct 16, 2024 08:29
--- NOTE | 2024-10-16 09:46 | DVHPN2 ---
Consult Progress Note Date Seen: Oct 16, 2024 Subjective Patient reports: Feels better Review of Systems: CVS:Normal, RESPIRATORY:Normal, NEURO:Normal Objective vital signs Vital Sign Date Time Temp Pulse Resp B/P (MAP) Pulse Ox O2 Delivery O2 Flow Rate FiO2 10/16/24 09:21 85 103/66 10/16/24 08:05 100 Room Air* 0 21 10/16/24 05:00 98.0 20 98.0 Total Intake and Output 10/15/24 10/15/24 10/16/24 15:00 23:00 07:00 Intake Total 1000 ml 550 ml Balance 1000 ml 550 ml medications Current Medications Medications Dose Ordered Sig/Darline Route Start Time Stop Time Status Last Admin Dose Admin Aspirin 81 mg DAILY PO 10/13/24 10:00 10/16/24 09:19 81 MG Atorvastatin Calcium 40 mg HS PO 10/12/24 22:00 10/15/24 22:19 40 MG Carvedilol 12.5 mg Q12HR PO 10/12/24 22:00 10/16/24 09:21 12.5 MG Hydralazine HCl 10 mg Q6HP PRN IV 10/12/24 20:30 Diagnostic Test (Pha) 1 strip ACHS 10/12/24 22:00 10/16/24 06:31 1 STRIP Insulin Human Regular ACHS SC 10/12/24 22:00 10/16/24 06:35 2 UNITS Dextrose 50 ml UD PRN IV 10/12/24 20:30 Sodium Chloride 10 ml Q8HR IV 10/12/24 22:00 10/16/24 05:41 10 ML Acetaminophen/ Hydrocodone Bitart 1 tab Q4HP PRN PO 10/12/24 20:30 10/16/24 09:22 1 TAB Ondansetron HCl 4 mg Q4HP PRN IV 10/12/24 20:30 Docusate Sodium 100 mg BIDPRN PRN PO 10/12/24 20:30 Acetaminophen 650 mg Q6HP PRN PO 10/12/24 20:30 Nitroglycerin 0.4 mg Q5MINP PRN SL 10/12/24 22:15 Morphine Sulfate 2 mg Q30M PRN IV 10/12/24 22:15 10/15/24 22:20 2 MG Alprazolam 1 mg Q8HPRN PRN PO 10/14/24 08:30 10/16/24 00:32 1 MG Clopidogrel Bisulfate 75 mg DAILY PO 10/14/24 10:00 10/16/24 09:20 75 MG Empaglifozin 25 mg DAILY PO 10/14/24 10:00 10/16/24 09:19 25 MG Sacubitril/ Valsartan 1 tab BID PO 10/14/24 10:00 10/16/24 09:20 1 TAB Examination: LUNGS:Normal, CVS:Normal, NEURO:Normal laboratory and microbiology Laboratory Tests 10/13/24 08:22 10/13/24 02:52 Test 10/13/24 02:52 Range/Units Serum Glucose 135 H 74-106 mg/dL Problem List/Assessment/Plan Problem List/Assessment/Plan Assessment (Dr. Lundy) * Chest Pain, Mild Troponins - troponins trending normal. EKG negative for significant ST abnormality. Nuclear findings negative for ischemia (see report). Preliminary transthoracic echocardiogram LVEF 15-20%. * Hx Ischemic Cardiomyopathy -Continue GDMT. Patient on Entresto p.o. twice daily, Jardiance 10 mg QD, Coreg 6.25 mg p.o. twice daily, add spironolactone 25 QD. Continue single-antiplatelet therapy and lipid lowering agent. * Presence of dual chamber AICD - as above. * HTN -stable, continue trending on current regimen. * HLD - statin * ELIZABET - avoid nephrotoxic agents, continue monitoring. * Tobacco use - endorses has tried to quit mutiplle times. Continue reenforcement for cessation. States she has a scheduled appointment with primary Internet Site Designer at [place] this upcoming week. Follow up as scheduled. There is no further cardiac work- up indicated at this time. Kindly call with any questions or concerns. Thank you for allowing us to participate in the management of this patient. This medical document was created using an electronic medical record system with voice recognition software and computerized dictation system. Although this document has been carefully reviewed, there might still be some phonetic and typographical errors. Occasional wrong-word or ``sound-alike substitutions may have occurred due to the inherent limitations of voice recognition software. These areas are purely typographical due to imperfections of the software programs and do not reflect any compromise in the patient's medical care. Please read the chart carefully and recognize, using context, where these substitutions have occurred. Plan discussed with: Patient, Other Date of Service: Oct 16, 2024 Billing Provider: ABBY NEAL Cardiology Common Codes: 39900-[id number] INP/OBS CARE(Mod) ABBY NEAL Oct 16, 2024 09:46
[2024-10-16] MEDS: SPIRONOLACTONE 25 MG TAB PO SCH (11:16)
--- NOTE | 2024-10-16 12:20 | DVHSR ---
APPROVED REPORT EXAM: Two-dimensional and M-mode echocardiogram with Doppler and color Doppler. Blood Pressure: 144/75 mmHg INDICATION Chest Pain RISK FACTORS Height: 5'2", Weight: 157 DIMENSIONS LVDd5.8 (3.8-5.7cm)LA (2D)4.2 (1.9-4.0cm)Aortic Root2.9 (2.0-3.7cm) LVDs5.3 (2.5-4.0cm)LA (MM) (1.9-4.0cm)Aortic Cusp Exc1.9 (1.5-2.0cm) EF (%) 18.0 (55-70%)Rt. Atrium3.0 (1.9-4.0cm)Asc. Aorta3.0 cm IVSd0.6 (0.7-1.1cm)RV (D) (1.8-2.4cm) PWd0.7 (0.7-1.1cm) Mitral Valve MitralMitral Stenosis E/A ratio0.02D MVAcm2 Aortic Valve Aortic ValveAortic Stenosis V10.62m/Les Mean GR.4mmHg V21.30m/Les Peak GR.7mmHg LVOT Diameter2.2 (1.8-2.4cm)Doppler AVA1.81cm2 Pulmonic Valve V20.79m/s Other Information Quality : Technically LimitedRhythm : Technically limited study due to body habitus. Conclusion lvef 25% dilated LV normal RV function left atrium enlarged mild mitral regurg no severe valve abnormalities noted
--- NOTE | 2024-10-16 12:39 | ECG ---
[facility] Test Date: 2024-10-12 Test Time: 22:11:34 Pat Name: ANUPAMA BARNES Department: ED Room: 0215T A Gender: F Oral And Maxillofacial Surgery: JACK : 1955 Requested By: KLARISSA VENEGAS Order Number: [id number] Reading MD: Lucho Lundy Measurements Intervals [place] Rate: 79 P: 60 KS: 158 QRS: -25 QRSD: 102 T: 72 QT: 347 QTc: 398 Interpretive Statements Sinus rhythm LVH with secondary repolarization abnormality Inferior infarct, old Anterior infarct, old Electronically Signed On 10-16-2024 17:30:16 PDT by Lucho Lundy Please click the below link to view image of tracing.
[2024-10-16] MEDS ORDERED: ALPR1TAB2 PO (13:19)
[2024-10-16] MEDS ORDERED: HYDR-4902 PO (13:19)
--- NOTE | 2024-10-16 13:26 | DVHDS2 ---
Discharge Summary Date of Admission Oct 12, 2024 at 22:07 Date of Discharge: Oct 16, 2024 Admitting Diagnosis Chest pain Wounds: None Labs/Diagnostic Data: Laboratory Results Test 10/16/24 11:18 10/15/24 08:20 10/14/24 11:30 10/13/24 08:22 POC Glucose 190 mg/dl (70-106) Urine Opiates Screen Pos (NEGATIVE) Urine Fentanyl Screen Neg (NEGATIVE) Urine Barbiturates Screen Neg (NEGATIVE) Urine Phencyclidine Screen Neg (NEGATIVE) Urine Amphetamines Screen Neg (NEGATIVE) Urine Benzodiazepines Screen Pos (NEGATIVE) Urine Cocaine Screen Neg (NEGATIVE) Urine Cannabinoids Screen Neg (NEGATIVE) B-Type Natriuretic Peptide 246.90 pg/mL (0-100) White Blood Count 4.8 10^3/uL (4.4-10.8) Red Blood Count 4.53 10^6/uL (4.0-5.20) Hemoglobin 13.1 g/dL (12.2-16.2) Hematocrit 39.8 % (36.0-46.0) Mean Corpuscular Volume 87.8 fL (80.0-100.0) Mean Corpuscular Hemoglobin 28.9 pg (28.0-32.0) Mean Corpuscular Hemoglobin Concent 33.0 g/dL (32.0-36.0) Red Cell Distribution Width 13.8 % (11.8-14.3) Platelet Count 139 10^3/uL (140-450) Mean Platelet Volume 8.8 fL (6.9-10.8) Neutrophils (%) (Auto) 57.2 % (37.0-80.0) Lymphocytes (%) (Auto) 28.4 % (10.0-50.0) Monocytes (%) (Auto) 8.7 % (0.0-12.0) Eosinophils (%) (Auto) 4.5 % (0.0-7.0) Basophils (%) (Auto) 1.2 % (0.0-2.0) Neutrophils # (Auto) 2.8 10 ^3/uL (1.6-8.6) Lymphocytes # (Auto) 1.4 10 ^3/uL (0.4-5.4) Monocytes # (Auto) 0.4 10 ^3/uL (0-1.3) Eosinophils # (Auto) 0.2 10 ^3/uL (0-0.8) Basophils # (Auto) 0.1 10 ^3/uL (0-0.2) Nucleated Red Blood Cells 0.3 % Troponin I High Sensitivity 32 ng/L (</=34) Test 10/13/24 07:05 10/13/24 02:52 10/12/24 19:19 Urine Color Yellow (Yellow) Urine Clarity Turbid (Clear) Urine pH 8.5 (5.0-9.0) Urine Specific Wirt 1.018 (1.001-1.035) Urine Protein 1+ (Negative) Urine Ketones Negative (Negative) Urine Blood Negative /uL (Negative) Urine Nitrite 2+ (Negative) Urine Bilirubin Negative (Negative) Urine Urobilinogen Normal mg/dL (Negative) Urine Leukocyte Esterase 3+ /uL (Negative) Urine RBC 1 /hpf (0 - 4) Urine Microscopic WBC 15 /HPF (0-5) Urine Squamous Epithelial Cells Few /hpf (<5) Urine Bacteria Few /hpf (None Seen) Urine Glucose Normal mg/dL (Normal) Sodium Level 138 mmol/L (136-145) Potassium Level 4.2 mmol/L (3.5-5.1) Chloride Level 107 mmol/L (98-107) Carbon Dioxide Level 21 mmol/L (20-31) Anion Gap 10 (5-15) Blood Urea Nitrogen 16 mg/dL (9-23) Creatinine 1.17 mg/dL (0.550-1.02) Glomerular Filtration Rate Calc 51 mL/min (>90) BUN/Creatinine Ratio 13.7 (10.0-20.0) Serum Glucose 135 mg/dL (74-106) Calcium Level 9.4 mg/dL (8.7-10.4) Total Bilirubin 0.5 mg/dL (0.2-1.0) Aspartate Amino Transferase (AST) 19 U/L (<34) Alanine Aminotransferase (ALT) 17 U/L (7-40) Alkaline Phosphatase 120 U/L (46-116) Total Protein 6.3 g/dL (5.7-8.2) Albumin 3.9 g/dL (3.2-4.8) Prothrombin Time 11.2 sec (9.3-11.8) Prothrombin Time INR 1.06 (0.9-1.15) Activated Partial Thromboplast Time 27.7 SEC (24.5-34.5) Other Laboratory Tests 10/13/24 08:22 10/13/24 02:52 Brief Hx & Hospital Course: 69-year-old female who [facility] the [facility] has a electronics engineering professor at [place] and also primary Dr. In [place] came in complaining of chest pain troponin borderline elevated treated per ACS protocol cardiology consult by Dr. Sen Cardiolite stress test showed negative for ischemia completely infarcted lateral and anterior wall in circumflex distribution with LV ejection fraction 22 percent systolic CHF and dilated left ventricle background medical problems include hypertension and congestive heart failure hypercholesterolemia history of SC status post stents in 2008 chronic current smoker counseled about quitting smoking. Patient advised that she has a appointment with her regular electronics engineering professor Dr. Silva next week. Cardiology cleared for discharge patient is discharged home reviewed home medications prescriptions for [place] and Xanax sent to the pharmacy. Consults/Reason for consult Cardiolite stress test Operations or Procedures Echocardiogram Condition at Discharge: Fair Final Diagnosis/Problems List Acute chest pain rule out coronary syndrome troponin borderline elevated, treatment per ACS protocol, consult for electronics engineering professor software solutions architect Dr. Lundy, Cardiolite stress test shows: Negative for ischemia completely infarcted lateral and anterolateral wall in circumflex distribution lvef 22% dilated LV severe systolic HF Hypertension : Losartan Hypertriglyceridemia: Lopid Acute on chronic congestive heart failure: Lasix Entresto Jardiance Coreg Hypercholesterolemia: Lipitor Acute renal injury History of SC status post stents 2008 Chronic current smoker counseling she does not want a patch Generalized weakness Acute respiratory distress Ejection fraction 40 % 2012, echo 22 % ejection fraction Discharge Disposition: Home Discharge Instruct/Medications Diet: Cardiac 2g Na,low cholest Activity: Light activity Follow Up/Referral: Keep Your appointment with your electronics engineering professor at [place] next week Medications: Xanax [place] Transmitted to pharmacy Reviewed all other home meds 36 (Time taken for discharge summary 36 minutes) Discharge Statement: "Patient was advised to return to the ER or call 911 if any headaches, dizziness, shortness of breath, chest pain, abdominal pain, bleeding, fevers, or worsening of medical condition. Patient was counseled about treatment plan, medications, possible side effects, patientverbalized understanding. All questions were answered to the best of my ability. This discharge took greater then 30 minutes in planning, reviewing documentation, counseling the patient, and discussing with other team members." ASSESSMENT ASSESSMENT Hospital Course Uneventful Assessment Acute chest pain rule out coronary syndrome troponin borderline elevated, treatment per ACS protocol, consult for electronics engineering professor software solutions architect Dr. Lundy, Cardiolite stress test shows: Negative for ischemia completely infarcted lateral and anterolateral wall in circumflex distribution lvef 22% dilated LV severe systolic HF Hypertension : Losartan Hypertriglyceridemia: Lopid Acute on chronic congestive heart failure: Lasix Entresto Jardiance Coreg Hypercholesterolemia: Lipitor Acute renal injury History of SC status post stents 2008 Chronic current smoker counseling she does not want a patch Generalized weakness Acute respiratory distress Ejection fraction 40 % 2012, echo 22 % ejection fraction Date of Service: Oct 16, 2024 Billing Provider: JOSE MANUEL DENT MD Common Visit Codes: 33976-EXK/OBS DISCH DAY >30min JOSE MANUEL DENT MD Oct 16, 2024 13:26
[2024-10-16] MEDS ORDERED: CARVEDILOL 3.125 MG TAB PO SCH (22:00)
[2024-10-17] MEDS ORDERED: EMPAGLIFLOZIN 10 MG TAB PO SCH (10:00)
== END 2024-10-16 16:41 | disposition home or self-care (01) | DRG 291 ==
LOC: ER 18:54 → EDBD 18:54 → OVERFLOW 22:07 → TELE-CENTR 22:08
PROVIDERS: ADMIT Family Medicine; ATTEND Family Medicine
DX: I13.0 Hypertensive heart and chronic kidney disease with heart failure and stage 1 through stage 4 chronic kidney disease, or unspecified chronic kidney disease (principal); I50.23 Acute on chronic systolic (congestive) heart failure; I24.9 Acute ischemic heart disease, unspecified; N17.9 Acute kidney failure, unspecified; R06.03 Acute respiratory distress; I25.10 Atherosclerotic heart disease of native coronary artery without angina pectoris; F17.210 Nicotine dependence, cigarettes, uncomplicated; I25.5 Ischemic cardiomyopathy; J44.9 Chronic obstructive pulmonary disease, unspecified; E78.00 Pure hypercholesterolemia, unspecified; N18.9 Chronic kidney disease, unspecified; E11.22 Type 2 diabetes mellitus with diabetic chronic kidney disease; Z95.5 Presence of coronary angioplasty implant and graft; Z95.0 Presence of cardiac pacemaker; Z79.82 Long term (current) use of aspirin; Z79.899 Other long term (current) drug therapy; Z79.84 Long term (current) use of oral hypoglycemic drugs; Z98.891 History of uterine scar from previous surgery; Z82.49 Family history of ischemic heart disease and other diseases of the circulatory system; Z71.6 Tobacco abuse counseling; I25.2 Old myocardial infarction; Z83.3 Family history of diabetes mellitus
CPT/HCPCS: 36415; 71045; 78452; 80053; 80307; 81001; 82962; 83880; 84484; 85025; 85610; 85730; 87086; 93005; 93017; 93306; 96361; 96374; 96375; 99291; G0378; J1815; J2405